=== PATIENT | male | born 1975 | race Caucasian/White ===

== ENCOUNTER 2018-05-06 11:55 | Emergency (ER) | payer BC ==
[2018-05-06 12:06] VITALS: BP 129/79; PULSE 84; TEMP 98.3; BMI 30.9
--- NOTE | 2018-05-06 12:09 | PDOC ---
History of Present Illness - General Chief Complaint: Pain Stated Complaint: RT ARM PAIN X 1 MONTH Time Seen by Provider: 05/06/18 11:58 - History of Present Illness Initial Comments: 05/06/18 12:05 42 M with no PMH presents to ED with R arm pain x 1 month. Pt states that he first noticed the pain while working out, doing triceps exercises. He states that the pain starts in his tricep and radiates towards his elbow. Denies any trauma or falls. Pt states that he has continued to work out through the pain, hoping it would get better. However, the pain has persisted. Yesterday, pt worked out again and did triceps exercises, which exacerbated the pain, prompting him to come to the ER today. Pt has not taken anything for the pain. Denies any significant swelling. Denies numbness/weakness in his arm or hand. Past History - Past Medical History Allergies/Adverse Reactions: Allergies Allergy/AdvReac Type Severity Reaction Status Date / Time metronidazole [From Flagyl] Allergy Rash Verified 05/06/18 11:56 Home Medications: Ambulatory Orders Ibuprofen [Advil -] 400 mg PO PRN PRN 05/06/18 - Suicide/Smoking/Psychosocial Hx Smoking History: Former smoker Hx Alcohol Use: No Drug/Substance Use Hx: No Substance Use Type: None Review of Systems - Review of Systems Comments:: 05/06/18 12:06 "GENERAL/CONSTITUTIONAL: No fever or chills. No weakness. HEAD, EYES, EARS, NOSE AND THROAT: No change in vision. No ear pain or discharge. No sore throat. CARDIOVASCULAR: No chest pain, no shortness of breath, no loss of consciousness RESPIRATORY: No cough, wheezing, or hemoptysis. GASTROINTESTINAL: No nausea, vomiting, diarrhea or constipation. GENITOURINARY: No dysuria, frequency, or change in urination. MUSCULOSKELETAL: + R arm pain, No neck or back pain. SKIN: No rash NEUROLOGIC: No vertigo, no change in strength/sensation. ENDOCRINE: No increased thirst. No abnormal weight change. HEMATOLOGIC/LYMPHATIC: No anemia, easy bleeding, or history of blood clots. ALLERGIC/IMMUNOLOGIC: No hives or skin allergy. *Physical Exam - Physical Exam Comments: 05/06/18 12:07 "GENERAL: Awake, alert, and fully oriented, in no acute distress. HEAD: No signs of trauma EYES: PERRLA, EOMI, sclera anicteric, conjunctiva clear ENT: Auricles normal inspection, hearing grossly normal, nares patent, oropharynx clear without exudates. Moist mucosa NECK: Nontender, no stepoffs, Normal ROM, supple, no lymphadenopathy, JVD, or masses LUNGS: Breath sounds equal, clear to auscultation bilaterally. No wheezes, and no crackles HEART: Regular rate and rhythm, normal S1 and S2, no murmurs, rubs or gallops ABDOMEN: Soft, nontender, normoactive bowel sounds. No guarding, no rebound. No masses EXTREMITIES: + tenderness R tricep tendon, Normal range of motion, no edema. No clubbing or cyanosis. No cords, erythema, or tenderness NEUROLOGICAL: Cranial nerves II through XII intact. 5/5 strength and sensation in all extremities, Normal speech, normal gait, normal cerebellar function SKIN: Warm, Dry, normal turgor, no rashes or lesions noted. Medical Decision Making - Medical Decision Making 05/06/18 12:07 42 M with R arm pain x 1 month, likely tricep tendonitis 2/2 overuse. Pt with no bony tenderness or deformity. - Naproxen - Ortho f/u Pt is well appearing, with normal vitals. Clinically stable for DC at this time. I discussed the physical exam findings, ancillary test results and final diagnoses with the patient. I answered all of the patient's questions. The patient was satisfied with the care received and felt comfortable with the discharge plan and treatment plan. The patient agrees to follow up with the primary care physician within 24-72 hours. *DC/Admit/Observation/Transfer Diagnosis at time of Disposition: Tendonitis - Discharge Dispostion Disposition: HOME - Referrals Referrals: Donnie Lockwood MD [Staff Physician] - - Patient Instructions Printed Discharge Instructions: DI for Tendinitis Additional Instructions: Your arm pain is likely due to tendonitis (inflammation of your tendon), which can be a result of overuse. Do NOT do any strenuous exercise with your arm until the pain has resolved completely. Take naproxen 500mg every 12 hours to help with the pain and inflammation. Make an appointment with an orthopedic surgeon for further evaluation of your pain. If your pain does not resolve, you may need a MRI to evaluate for tendon tears or other injuries. - Post Discharge Activity Forms/Work/School Notes: Back to Work - Attestations Physician Attestion: 05/06/18 12:09 I, Dr. Donnie Strickland MD, attest that this document has been prepared under my direction and personally reviewed by me in its entirety. I further attest, that it accurately reflects all work, treatment, procedures and medical decision -making performed by me.
== END 2018-05-06 12:28 | disposition home or self-care (01) ==
LOC: FER 11:55
DX: M77.8 Other enthesopathies, not elsewhere classified (principal); Z87.891 Personal history of nicotine dependence
CPT/HCPCS: 99282-25

== ENCOUNTER 2019-01-21 11:26 | Emergency (ER) | payer BC ==
[2019-01-21 11:53] VITALS: BP 132/77; PULSE 83; TEMP 99; BMI 29.0
[2019-01-21] MEDS ORDERED: KETOROLAC TROMETHAMINE 30 MG/1 ML VIAL IM ONE (12:16)
[2019-01-21] MEDS ORDERED: KETOROLAC TROMETHAMINE 30 MG/1 ML VIAL ONE (12:21)
--- NOTE | 2019-01-21 13:27 | PDOC ---
History of Present Illness - General Chief Complaint: Pain Stated Complaint: PAIN UPPER LT. QUAD. Time Seen by Provider: 01/21/19 12:00 History Source: Patient Exam Limitations: No Limitations - History of Present Illness Initial Comments: 01/21/19 13:22 43-year-old male denies past medical history complains of cough, initially dry cough then became productive cough and sore throat for 3 weeks. Presents today because he felt left-sided chest pain upon coughing and taking a deep breath. Has 2 small children at home with viral illnesses. Denies shortness of breath, palpitations, lightheadedness, leg pain, leg swelling, fever, chills, body aches , recent travel. 5 days ago he went to an urgent care and was treated with a azithromycin. She stopped taking azithromycin after 3 days because he developed a rash. Rash now almost entirely resolved. He did not have an x-ray at the urgent care center. ROS: GENERAL/CONSTITUTIONAL: No fever, chills, weakness, dizziness HEAD, EYES, EARS, NOSE AND THROAT: Sore throat, no changes in vision, No ear pain or discharge CARDIOVASCULAR: Left-sided chest pain when taking a deep breath today RESPIRATORY: Productive cough, denies shortness of breath GASTROINTESTINAL: No pain, nausea, vomiting, diarrhea or constipation GENITOURINARY: No dysuria MUSCULOSKELETAL: No neck or back pain SKIN: No rash NEUROLOGIC: No headache, vertigo, loss of consciousness, or loss of sensation PE: GENERAL: well-appearing, NAD HEAD: NCAT EYES: Pupils equal, round and reactive to light, sclera anicteric, conjunctiva clear ENT: pharynx: no erythema, no exudate, uvula midline NECK: supple CHEST: Reproducible tenderness to palpation to anterior [id number] RESP: clear, no w/r/r CARDIO: rrr, no m/g/r ABD: +BS, soft, nontender, non distended BACK: no midline spinal ttp, no CVAT EXTREMITIES: Normal range of motion, no edema NEUROLOGICAL: Normal speech, normal gait SKIN: Warm, Dry 01/21/19 13:27 Is this a multiple visit Asthma Patient?: No Past History - Past Medical History Allergies/Adverse Reactions: Allergies Allergy/AdvReac Type Severity Reaction Status Date / Time metronidazole [From Flagyl] Allergy Rash Verified 01/21/19 11:42 Home Medications: Ambulatory Orders Ibuprofen [Advil -] 400 mg PO PRN PRN 05/06/18 Naproxen 500 mg PO BID #14 tablet 05/06/18 COPD: No - Immunization History Immunization Up to Date: No - Psycho Social/Smoking Cessation Hx Smoking History: Never smoked Have you smoked in the past 12 months: No Hx Alcohol Use: No Drug/Substance Use Hx: No Substance Use Type: None *Physical Exam - Vital Signs Last Vital Signs Temp Pulse Resp BP Pulse Ox 99 F 83 20 132/77 100 01/21/19 11:43 01/21/19 11:43 01/21/19 11:43 01/21/19 11:43 01/21/19 11:43 ED Treatment Course - RADIOLOGY Radiology Studies Ordered: Category Date Time Status CHEST PA & LAT [RAD] Stat Radiology 01/21/19 12:16 Completed - Medications Given in the ED: ED Medications Discontinued Medications Generic Name Dose Route Start Last Admin Trade Name Freq PRN Reason Stop Dose Admin Ketorolac Tromethamine 30 mg 01/21/19 12:16 01/21/19 12:25 Toradol Injection - IM 01/21/19 12:17 30 mg ONCE ONE Administration Medical Decision Making - Medical Decision Making 01/21/19 13:25 43-year-old male denies medical history complaining of 3 weeks of cough initially dry then became productive and sore throat. Today developed pain to left side of chest when taking a deep breath. Likely costochondritis ECG: NSR, HR 83, no st or tw changes cxr: Negative Received IM Toradol 30 mg Will discharge with strict return precautions Discharge - Discharge Information Problems reviewed: Yes Clinical Impression/Diagnosis: Viral upper respiratory illness Condition: Stable Disposition: HOME - Admission No - Follow up/Referral Referrals: Daryl Heath [Primary Care Provider] - - Patient Discharge Instructions Additional Instructions: Take ibuprofen 600 mg every 6 hours as needed for pain If you develop shortness of breath, chest pain, nausea, vomiting, diarrhea or worsening symptoms return to the ED Follow-up with your doctor within 1 week - Post Discharge Activity
--- NOTE | 2019-01-25 01:07 | EKG ---
Test Reason : Blood Pressure : / mmHG Vent. Rate : 083 BPM Atrial Rate : 083 BPM P-R Int : 146 ms QRS Dur : 112 ms QT Int : 354 ms P-R-T Axes : 042 -11 047 degrees QTc Int : 415 ms NORMAL SINUS RHYTHM NORMAL ECG WHEN COMPARED WITH ECG OF 24-NOV-2004 17:24, NO SIGNIFICANT CHANGE WAS FOUND Confirmed by CRISTINA PEREZ MD ([id number]) on 01/25/2019 1:07:38 AM Referred By: Confirmed By:CRISTINA PEREZ MD
== END 2019-01-21 13:32 | disposition home or self-care (01) ==
LOC: JERFT 11:26
PROC: 3E0233Z Introduction of Anti-inflammatory into Muscle, Percutaneous Approach (ICD-10-PCS; principal; 2019-01-21)
DX: J06.9 Acute upper respiratory infection, unspecified (principal)
CPT/HCPCS: 71046-TC-FY; 93005; 93010; 99281-25

== ENCOUNTER 2020-04-11 16:50 | Emergency (ER) | payer BC ==
[2020-04-11 16:58] VITALS: TEMP 98.4; BMI 29.5
[2020-04-11] MEDS ORDERED: MAG HYDROX/AL HYDROX/SIMETH 30 ML UNIT-DOSE CUP PO ONE (17:52)
[2020-04-11] MEDS ORDERED: FAMOTIDINE 20 MG TABLET PO ONE (17:52)
[2020-04-11] MEDS ORDERED: FAMOTIDINE 20 MG TABLET ONE (18:41)
[2020-04-11] MEDS ORDERED: MAG HYDROX/AL HYDROX/SIMETH 30 ML UNIT-DOSE CUP ONE (18:41)
[2020-04-11 19:45] LABS: BASO % 0.6 % (0-2.0); HEMATOCRIT 40.2 % (35.4-49); HEMOGLOBIN 13.8 GM/dL (11.7-16.9); LYMPH % 31.8 % (8-40); MCH 31.6 pg (25.7-33.7); MCHC 34.3 g/dl (32.0-35.9); MEAN CELL VOLUME 92.1 fl (80-96); MEAN PLT VOLUME 8.9 fl (7.5-11.1); MONO % 7.9 % (3.8-10.2); NEUT % 58.7 % (42.8-82.8); PLATELET COUNT 220 K/MM3 (134-434); RBC 4.37 M/mm3 (4.00-5.60); WHITE BLOOD COUNT 8.4 K/mm3 (4.0-10.0)
[2020-04-11 20:37] LABS: POTASSIUM 4.1 mmol/L (3.5-5.1)
[2020-04-11 20:39] LABS: CALCIUM 9.7 mg/dL (8.5-10.1)
[2020-04-11 20:40] LABS: ALBUMIN 4.2 g/dl (3.4-5.0); BLOOD UREA NITROGEN 16.5 mg/dL (7-18)
[2020-04-11 20:43] LABS: CREATININE 1.1 mg/dL (0.55-1.3)
[2020-04-11 20:45] LABS: BILIRUBIN,TOTAL 0.7 mg/dL (0.2-1); TOT PROT 8.2 g/dl (6.4-8.2)
[2020-04-11 20:50] VITALS: BP 139/75; PULSE 78
== END 2020-04-11 21:10 | disposition home or self-care (01) ==
LOC: JER 16:50
DX: R10.84 Generalized abdominal pain (principal)
CPT/HCPCS: 36415; 80053; 83690; 85025; 99283-25

== ENCOUNTER 2020-05-03 16:51 | Emergency (ER) | payer BC, OTHER ==
[2020-05-03 17:04] VITALS: BP 139/91; PULSE 71; BMI 29.9
[2020-05-03] MEDS ORDERED: LIDOCAINE 5% TOPICAL PATCH TP ONE (17:28)
[2020-05-03] MEDS ORDERED: LIDOCAINE 5% TOPICAL PATCH ONE (18:50)
[2020-05-03] MEDS ORDERED: LIDOCAINE PATCH REMOVAL MC SCH (22:00)
== END 2020-05-03 19:49 | disposition home or self-care (01) ==
LOC: FER 16:51
DX: M54.2 Cervicalgia (principal); R51.9 Headache, unspecified
CPT/HCPCS: 70450-TC; 72125-TC; 99284-25